=== PATIENT | female | born 1965 | race Caucasian/White ===

== ENCOUNTER → 2024-08-21 | Outpatient (CLI) | payer MEDICAID | END | disposition home or self-care (01) | LOC: SHCH 12:58 | PROVIDERS: ATTEND Internal Medicine | DX: R07.9 Chest pain, unspecified (principal) | CPT/HCPCS: 93306 ==

== ENCOUNTER → 2024-12-26 | Outpatient (CLI) | payer MEDICAID ==
--- NOTE | 2024-12-26 17:04 | HMCIMG ---
MR KNEE RIGHT WO HISTORY: Right knee pain COMPARISON: None TECHNIQUE: MRI of the right knee was performed utilizing multiple pulse sequences in axial, coronal and sagittal planes. Patient was not given contrast through intravenous route. FINDINGS: No abnormal signal intensity is seen of the visualized bony structure. The anterior cruciate and posterior cruciate ligaments are grossly intact. The medial and lateral collateral ligaments are also intact. Quadriceps tendon and patellar tendon are within normal limits. Tiny joint effusion is seen. Medial meniscal tear is seen involving posterior horn and body with superior and inferior articular extension. There is intrasubstance tear involving the medial and lateral menisci. No evidence of Villatoro's cyst is seen. IMPRESSION: 1. Tiny joint effusion is seen. 2. Medial meniscal tear is seen involving posterior horn and body with superior and inferior articular extension. There is intrasubstance tear involving the medial and lateral menisci.
== END | disposition home or self-care (01) ==
LOC: RAH 11:34
PROVIDERS: ATTEND Family Medicine
DX: S83.241A Other tear of medial meniscus, current injury, right knee, initial encounter (principal); S83.511A Sprain of anterior cruciate ligament of right knee, initial encounter; M17.11 Unilateral primary osteoarthritis, right knee; M25.461 Effusion, right knee; M25.561 Pain in right knee; X58.XXXA Exposure to other specified factors, initial encounter; Y93.89 Activity, other specified; Y92.89 Other specified places as the place of occurrence of the external cause; Y99.8 Other external cause status
CPT/HCPCS: 73721